=== PATIENT | female | born 1995 | race Caucasian/White ===

== ENCOUNTER 2019-08-20 13:43 | Emergency (ER) | payer OTHER ==
[~2019-08-20] VITALS: Ht 172.7 cm; Wt 71.7 kg
[2019-08-20] MEDS ORDERED: ANTICONCEPTIVO PO (13:59)
== END 2019-08-20 16:57 | disposition home or self-care (01) ==
LOC: ER 13:43
DX: R42 Dizziness and giddiness (principal)

== ENCOUNTER 2021-09-14 20:54 | Emergency (ER) | payer OTHER ==
[~2021-09-14] VITALS: Ht 172.7 cm; Wt 77.1 kg
[~2021-09-14 20:54] MED LIST: ANTICONCEPTIVO PO
== END 2021-09-14 23:56 | disposition home or self-care (01) ==
LOC: ER 20:54
DX: J02.0 Streptococcal pharyngitis (principal); Z20.828 Contact with and (suspected) exposure to other viral communicable diseases

== ENCOUNTER 2021-12-31 10:09 | Outpatient (CLI) | payer OTHER | END 2021-12-31 11:26 | disposition home or self-care (01) | LOC: PRENATAL 10:09 | PROVIDERS: ATTEND Obstetrics & Gynecology Maternal & Fetal Medicine | DX: O35.3XX0 Maternal care for (suspected) damage to fetus from viral disease in mother, not applicable or unspecified (principal); O35.9XX0 Maternal care for (suspected) fetal abnormality and damage, unspecified, not applicable or unspecified; Z3A.22 22 weeks gestation of pregnancy ==

== ENCOUNTER 2022-04-08 04:14 | Outpatient (CLI) | payer OTHER ==
[2022-04-08] MEDS ORDERED: PRENATAL + DHA1 EAC1 PO (04:54)
== END 2022-04-08 20:03 | disposition home or self-care (01) ==
LOC: OBS/DEL 04:14
PROVIDERS: ATTEND Student in an Organized Health Care Education/Training Program
DX: O26.893 Other specified pregnancy related conditions, third trimester (principal); Z3A.36 36 weeks gestation of pregnancy; R51.9 Headache, unspecified

== ENCOUNTER 2022-04-27 05:11 | Inpatient (IN) | payer OTHER ==
[~2022-04-27] VITALS: Ht 172.7 cm; Wt 88.9 kg
[~2022-04-27 05:11] MED LIST changes: +PRENATAL + DHA1 EAC1 PO
[2022-04-29] MEDS ORDERED: NAPR500T14 PO (09:04)
== END 2022-04-29 12:06 | disposition home or self-care (01) | DRG 807 ==
LOC: OB/GYN 05:11 → LDR 05:11 → OB/GYN 07:50
PROVIDERS: ADMIT Obstetrics & Gynecology; ATTEND Obstetrics & Gynecology
PROC: 10E0XZZ Delivery of Products of Conception, External Approach (ICD-10-PCS; principal; 2022-04-27)
PROC: 0KQM0ZZ Repair Perineum Muscle, Open Approach (ICD-10-PCS; 2022-04-27)
PROC: 4A1HXCZ Monitoring of Products of Conception, Cardiac Rate, External Approach (ICD-10-PCS; 2022-04-27)
DX: O70.1 Second degree perineal laceration during delivery (principal); Z37.0 Single live birth; Z3A.38 38 weeks gestation of pregnancy; Z20.822 Contact with and (suspected) exposure to COVID-19

== ENCOUNTER 2023-06-30 08:30 | Outpatient (CLI) | payer OTHER ==
[~2023-06-30 08:30] MED LIST changes: +NAPR500T14 PO
== END 2023-06-30 08:32 | disposition home or self-care (01) ==
LOC: PRENATAL 08:30
PROVIDERS: ATTEND Obstetrics & Gynecology Maternal & Fetal Medicine
DX: O35.3XX0 Maternal care for (suspected) damage to fetus from viral disease in mother, not applicable or unspecified (principal); O44.00 Complete placenta previa NOS or without hemorrhage, unspecified trimester; Z3A.19 19 weeks gestation of pregnancy

== ENCOUNTER 2023-09-12 16:57 | Outpatient (CLI) | payer OTHER ==
[2023-09-12] MEDS ORDERED: RINGERS SOLUTION,LACTATED 1,000 ML IV SCH (17:15)
[2023-09-12 17:27] LABS: URINE APPEARANCE Cloudy; URINE BILIRRUBIN Negative (NEGATIVE); URINE BLOOD Large; URINE COLOR Yellow; URINE GLUCOSE Negative (NEGATIVE); URINE LEUKOCYTE Large; URINE NITRATE Negative; URINE PROTEIN 30 (NEGATIVE); URINE UROBILINOGEN 0.2 E.U./dl
[2023-09-12 17:31] LABS: URINE BACTERIA 2043.5 uL (0.0-1933); URINE EPITHELIAL CELLS 20.5 uL (0.0-38.8); URINE RBC 116.3 uL (0.0-20.8); URINE WBC 1459.8 uL (0.0-23.2)
[2023-09-12 17:33] LABS: HEMATOCRIT 32.1 % (36.0-45.00); MEAN CELL VOLUME 84.4 fL (80.00-100.00); MEAN CORPUSCULAR HGB CONC 34.3 g/dl (32.0-36.0); PLATELET COUNT 259 K/uL (150-450); RED CELL DISTRIBUTION WIDTH 13.1 % (11.5-14.5)
[2023-09-12] MEDS ORDERED: AMPICILLIN SODIUM 2,000 MG VIAL IV ONE (20:45)
[2023-09-13] MEDS ORDERED: MACROBID 100 M100 MG PO (08:11)
== END 2023-09-13 09:26 | disposition home or self-care (01) ==
LOC: OBS/DEL 16:57 → LDR 17:05 → OBS/DEL 17:07
PROVIDERS: ATTEND Obstetrics & Gynecology
DX: O26.893 Other specified pregnancy related conditions, third trimester (principal); Z3A.30 30 weeks gestation of pregnancy; R10.2 Pelvic and perineal pain

== ENCOUNTER → 2023-10-13 12:11 | Outpatient (CLI) | payer OTHER ==
[~2023-10-13 12:11] MED LIST changes: +MACROBID 100 M100 MG PO
== END | disposition home or self-care (01) ==
LOC: PRENATAL 12:11
PROVIDERS: ATTEND Obstetrics & Gynecology Maternal & Fetal Medicine
DX: O26.843 Uterine size-date discrepancy, third trimester (principal); O43.893 Other placental disorders, third trimester; O36.8130 Decreased fetal movements, third trimester, not applicable or unspecified; Z3A.34 34 weeks gestation of pregnancy

== ENCOUNTER 2023-11-05 06:20 | Inpatient (IN) | payer OTHER ==
[~2023-11-05] VITALS: Ht 172.7 cm; Wt 84.4 kg
[2023-11-05] MEDS ORDERED: OXYTOCIN 500 ML IV SCH (08:00)
[2023-11-05 08:03] LABS: PH,URINE 6.5 (5.0-8.0); URINE APPEARANCE Cloudy; URINE BILIRRUBIN Negative (NEGATIVE); URINE BLOOD Negative; URINE COLOR Yellow; URINE GLUCOSE Negative (NEGATIVE); URINE KETONE Negative (NEGATIVE); URINE LEUKOCYTE Small; URINE NITRATE Negative; URINE PROTEIN Negative (NEGATIVE); URINE UROBILINOGEN 0.2 E.U./dl
[2023-11-05 08:07] LABS: URINE BACTERIA 293.4 uL (0.0-1933); URINE WBC 36.3 uL (0.0-23.2)
[2023-11-05 08:30] LABS: HEMATOCRIT 30.7 % (36.0-45.00); HEMOGLOBIN 10.6 g/dL (12.0-15.00); MEAN CELL VOLUME 81.6 fL (80.00-100.00); MEAN CORPUSCULAR HEMOGLOBIN 28.2 pg (27.00-32.0); MEAN CORPUSCULAR HGB CONC 34.5 g/dl (32.0-36.0); PLATELET COUNT 216 K/uL (150-450); RED BLOOD COUNT 3.77 M/uL (4.00-6.00); RED CELL DISTRIBUTION WIDTH 12.9 % (11.5-14.5)
[2023-11-05 08:54] LABS: URINE EPITHELIAL CELLS > 201.7 uL (0.0-38.8); URINE RBC 1.6 uL (0.0-20.8)
[2023-11-05 08:58] LABS: INR < 0.93; PARTIAL THROMBOPLASTIN TIME 28.9 SECONDS (22.0-34.0)
[2023-11-05 09:37] LABS: ALBUMIN 2.4 gm/dL (3.4-5.0); BILIRUBIN TOTAL 0.37 mg/dL (0.3-1.2); CALCIUM 8.6 mg/dL (8.5-10.1); CREATININE SERUM 0.58 mg/dL (0.55-1.02); GFR 126.67; GLOBULINA 3.5 G/DL (2.4-3.5); POTASSIUM 4.38 mEq/L (3.5-5.1); TOTAL PROTEIN 5.9 gm/dL (6.4-8.2)
[2023-11-05] MEDS ORDERED: ERYTHROMYCIN BASE 1 GM TUBE OP ONE (13:02)
[2023-11-05] MEDS ORDERED: LIDOCAINE HCL 1% 10ML VIAL ONE (13:03)
[2023-11-05] MEDS ORDERED: CHLORHEXIDINE GLUCONATE 120 ML BOTTLE TOP ONE (13:03)
[2023-11-05] MEDS ORDERED: OXYTOCIN 20 UNITS/1000ML RL PIGGYBAG IV ONE (13:03)
[2023-11-05] MEDS ORDERED: OXYTOCIN 1,000 ML IV SCH (14:15)
[2023-11-05] MEDS ORDERED: ERYTHROMYCIN BASE 1 GM TUBE OP NR (14:15)
[2023-11-05] MEDS ORDERED: IBUprofen 400 MG TABLET PO PRN (14:15)
[2023-11-05] MEDS ORDERED: CHLORHEXIDINE GLUCONATE 120 ML BOTTLE TOP NR (14:15)
[2023-11-05] MEDS ORDERED: METHYLERGONOVINE MALEATE 0.2 MG TABLET PO SCH (20:00)
[2023-11-07] MEDS ORDERED: NAPR500T14 PO (07:29)
== END 2023-11-07 15:04 | disposition home or self-care (01) | DRG 807 ==
LOC: OB/GYN 06:20 → LDR 06:20 → OB/GYN 18:47
PROVIDERS: ADMIT Obstetrics & Gynecology; ATTEND Obstetrics & Gynecology
PROC: 10E0XZZ Delivery of Products of Conception, External Approach (ICD-10-PCS; principal; 2023-11-05)
PROC: 4A1HXCZ Monitoring of Products of Conception, Cardiac Rate, External Approach (ICD-10-PCS; 2023-11-05)
DX: O80 Encounter for full-term uncomplicated delivery (principal); Z37.0 Single live birth; Z3A.37 37 weeks gestation of pregnancy; Z20.822 Contact with and (suspected) exposure to COVID-19